=== PATIENT | female | born 1990 | race Asian ===

== ENCOUNTER 2020-04-30 05:58 | Inpatient (IN) ==
[2020-04-30] MEDS ORDERED: OXYTOCIN 30 UNITS/500 ML BAG IV PRN ×2 (06:45→17:12)
[2020-04-30] MEDS ORDERED: fentaNYL 2MCG/ML ROPIV 1.25MG/ML 100 ML BAG EPI ONE (06:56)
[2020-04-30] MEDS ORDERED: BUPIVACAINE 0.25% 30 ML VIAL ONE (06:56)
[2020-04-30] MEDS ORDERED: ePHEDrine sulfate 50 MG/ML AMP ONE (06:56)
[2020-04-30] MEDS ORDERED: fentaNYL citrate 100 MCG/2 ML VIAL ONE (06:56)
[2020-04-30] MEDS ORDERED: PENICILLIN G POTASSIUM 6 MU in DEXTROSE 5% 250 ML IV ONE (07:00)
[2020-04-30] MEDS: LACTATED RINGER'S 1,000 ML IV PRN ×3 (07:05→11:44)
[2020-04-30 07:17] LABS: Hematocrit (blood only) 34.1 % (37-47); Hemoglobin 10.6 g/dL (12.0-16.0); Mean Corpuscular Hemoglobin 25.3 pg (25-34); Mean Corpuscular Volume 81.4 fL (80-100); Platelet Count 260 K/uL (130-400); RDW Coefficient of Variation 14.7 % (11.5-14.5); RDW Standard Deviation 43.3 fL (36.4-46.3); Red Blood Count 4.19 M/uL (4.2-5.4); White Blood Count 11.94 K/uL (4.8-10.8)
[2020-04-30 07:22] LABS: Mean Corpuscular Hgb Conc 31.1 g/dL (32-36)
--- NOTE | 2020-04-30 07:49 | History & Physical Report ---
Date of Service April 30, 2020 Assessment & Plan (1) Supervision of normal intrauterine in primigravida: Admit to L&D. EFM/toco. Labs. IV access. Would like epidural. History of Present Illness Chief Complaint: labor Primary Care Provider: BRITTANI PCP 30yo @ 39 04/20 presents after rupture of membranes for clear fluid at 5am this morning. Contractions every few minutes. + movement, scant vaginal bleeding. complicated by finding of isolated choroid plexus cyst on ultrasound, later resolved. She had a panorama test with "no result" and declined repeat testing. GBS was positive in urine culture. Allergies Allergy/AdvReac Type Severity Reaction Status Date / Time No Known Allergies Allergy Verified 04/30/20 06:35 Home Medications Home Medications Medication Instructions Recorded Confirmed Type No Known Home Medications 04/25/20 04/30/20 History Patient History Medical History Depression Encounter for anatomic survey Family History Aunt Breast cancer Arthritis Social History Preferred Language: Mandarin Pashto Workers Compensation Analyst Required: No Beliefs That Will Affect Care: None marital status: marital status details: Seb Mccullough (27) [phone] Current Living Situation: Spouse Current Living Situation Comment: lives with FOB, no pets current occupational status: student current occupation: Communications student Other Information That Helps Us Care for You: No Feels Safe at Home: Yes Safety Concerns: Feels Safe At This Time Smoking Status: Never smoker Hx Alcohol Use: No Hx Substance Use: No Review of Systems All systems reviewed & are unremarkable except as noted in HPI & below Physical Exam Physical Exam: Cervix 3/90/-1 FHT Cat 1 [place] Q 2-4 min Constitutional: WD/WN, vitals as above Respiratory: normal respiratory effort, lungs clear to auscultation no respiratory distress Cardiovascular: Rate/Rhythm: regular rate and regular rhythm Gastrointestinal (Abdomen): Inspection/Auscultation: abdomen normal to inspection Percussion/Palpation: abdomen soft; abdomen nontender Gravid. No s/s chorio or abruption. Skin: no rashes, warm and dry Psychiatric: A+Ox3, euthymic affect Results & Data Vital Signs (Past 12 Hours) Vital Signs Temp Pulse Resp BP Pulse Ox 04/30/20 07:41 90 100 04/30/20 07:36 84 100 04/30/20 07:31 80 100 04/30/20 07:26 91 H 100 04/30/20 07:21 80 100 04/30/20 06:14 37.0 C 18 04/30/20 06:11 86 107/68 Coding Level of Care Code None Diagnoses Supervision of normal intrauterine in primigravida Z34.00
--- NOTE | 2020-04-30 08:10 | Anesthesiology Consultation ---
Date of Service April 30, 2020 Assessment & Plan Chart Review Chart Review: Acceptable Risk for Labor Epidural Consults Requested none History Height/Weight Height: 5 ft 2.99 in Weight: 75.296 kg Allergies Allergy/AdvReac Type Severity Reaction Status Date / Time No Known Allergies Allergy Verified 04/30/20 06:35 Medications Home Medications Medication Instructions Recorded Confirmed Last Taken No Known Home Medications 04/25/20 04/30/20 Unknown Active Medications Generic Name Dose Route Start Last Admin Trade Name Freq PRN Reason Stop Dose Admin Lactated Ringer's 1,000 mls @ 125 mls/hr 04/30/20 06:45 04/30/20 07:58 Lr IV 05/02/20 06:44 999 mls/hr .Q8H PRN Administration L&D Protocol Protocol Past Medical History Medical History Depression Encounter for anatomic survey Past Family History Family History Aunt Breast cancer Arthritis Social History Smoking Status: Never smoker Hx Alcohol Use: No Hx Substance Use: No substance use type: does not use Physical Exam Vital Signs Last Vital Signs Temp 37.0 C 04/30/20 06:14 Pulse 77 04/30/20 08:08 Resp 18 04/30/20 06:14 BP 101/57 L 04/30/20 08:08 Pulse Ox 99 04/30/20 08:06 Testing Laboratory Results 04/30/20 07:03
[2020-04-30] MEDS ORDERED: fentaNYL 2MCG/ML ROPIV 1.25MG/ML 100 ML BAG EPI PRN (08:11)
[2020-04-30] MEDS ORDERED: NALOXONE HCL 1 MG in SODIUM CHLORIDE 0.9% 1000ML 1,000 ML IV PRN (08:11)
[2020-04-30] MEDS ORDERED: DiphenhydrAMINE HCL 50 MG/ML VIAL IV PRN (08:11)
[2020-04-30] MEDS ORDERED: NALBUPHINE HCL INJ 10 MG/ML AMP IV PRN (08:11)
[2020-04-30] MEDS ORDERED: NALOXONE HCL 0.4 MG/1 ML VIAL/CARP IV PRN (08:11)
[2020-04-30] MEDS ORDERED: ePHEDrine sulfate 50 MG/ML AMP IV PRN (08:11)
[2020-04-30] MEDS: PENICILLIN G POTASSIUM 3 MU in DEXTROSE 5% 100 ML IV PRN ×2 (11:00→15:02)
[2020-04-30] MEDS ORDERED: IBUPROFEN 600 MG TAB PO PRN (17:12)
[2020-04-30] MEDS ORDERED: DIPHTHERIA/TETANUS/PERTUSSIS 0.5 ML SYR/VIAL IM ONE (17:12)
[2020-04-30] MEDS ORDERED: SUPERCREAM 0.870% 15 GM JAR EXT PRN (17:12)
[2020-04-30] MEDS ORDERED: ACETAMINOPHEN 325 MG TAB PO PRN (17:12)
[2020-04-30] MEDS ORDERED: HYDROCORTISONE ACETATE 25 MG SUPP PR PRN (17:12)
[2020-04-30] MEDS ORDERED: BENZOCAINE 20% AER SPR 82.5 GM CAN EXT PRN (17:12)
--- NOTE | 2020-04-30 18:56 | Anesthesia Procedure Note ---
Date of Service April 30, 2020 Anesthesia Post Epidural Note Vital Signs Vital Signs: Temp Pulse Resp BP Pulse Ox 37.3 C 80 16 100/56 L 99 04/30/20 17:03 04/30/20 18:47 04/30/20 17:03 04/30/20 18:47 04/30/20 16:56 Notes Mental Status: alert / awake / arousable Nausea / Vomiting: adequately controlled Pain: adequately controlled Airway Patency, RR, SpO2: stable & adequate BP & HR: stable & adequate Hydration State: stable & adequate Neuraxial Anesthesia: was administered and sensory block is resolving Anesthetic Complications: no major complications apparent and Pt Satisfied with anesthetic care Epidural: Removed without complications and With tip intact
--- NOTE | 2020-04-30 19:31 | Delivery Summary ---
DATE OF OPERATION: 04/30/2020 The patient is a 30-year-old 2, para 0-0-1-0 female who presented at 39 and 6/7 weeks with ruptured membranes for clear fluid at approximately 0500 hours. She began to contract spontaneously. She received epidural analgesia, which was effective. She progressed to full dilation and pushed effectively over intact perineum for delivery of a viable male . The was placed on the mother's abdomen for further drying and attention. There was vigorous crying and the infant was moving all 4 limbs. The placenta was expressed intact with a 3-vessel cord. A first-degree vaginal laceration was repaired with 3-0 chromic in the usual fashion. Estimated blood loss was 250 mL. Mother and infant were doing well after delivery. bleeding was controlled with dilute Pitocin. I attest to the content of the Intraoperative Record and any orders documented therein. Any exception s are noted below.
--- NOTE | 2020-05-01 05:43 | Obstetrical Progress Note ---
Date of Service <Gus Spencer MD - Last Filed: 05/01/20 07:18> May 01, 2020 Assessment & Plan <Gus Spencer MD - Last Filed: 05/01/20 07:18> (1) : PPD#1: - doing well, ambulating well, tolerating oral intake - continue routine care - after discharge will have 6 week follow-up with Dr. Jennifer Luke <Gus Spencer MD - Last Filed: 05/01/20 07:18> Enoc Murphy is a 30 y/o female ; PPD #1 following spontaneous vaginal delivery at 39 weeks; doing well this morning; minimal abdominal cramping/pain; voiding well; tolerating meals overnight; and able to ambulate some; some persistent spotting with intermittent improvement this morning. Review of Systems Constitutional: denies fever; chills; sweats; headache Respiratory: denies shortness of breath, difficulty breathing Cardiac: denies chest pain; palpitations; chest pressure Breast: denies breast pain : denies dysuria Physical Exam <Gus Spencer MD - Last Filed: 05/01/20 07:18> General: alert; oriented; no acute distress Cardiac: RRR; no m/g/r Respiratory: CTAB a/p; no wheezes/rales/rhonchi; no increased work of breathing; symmetrical chest rise; no respiratory distress Abdomen: soft; NT/ND; bowel sounds positive Uterus: uterine fundus firm; palpable 1cm below umbilicus Lower extrem: no lower extremity edema or swelling; no deep calf pain; Leland's sign negative b/l Results & Data <Gus Spencer MD - Last Filed: 05/01/20 07:18> Vital Signs (Past 12 Hours) Vital Signs Temp Pulse Pulse Resp BP BP Pulse Ox 05/01/20 04:05 36.8 C 71 16 96/63 L 05/01/20 00:15 37.6 C H 72 16 99/64 L 04/30/20 19:35 36.8 C 89 16 109/69 98 04/30/20 19:02 90 98/53 L 04/30/20 18:47 80 100/56 L 04/30/20 18:32 68 100/57 L 04/30/20 18:17 74 107/57 L 04/30/20 18:03 82 102/59 L 04/30/20 17:47 88 105/59 L Laboratory Results 05/01/20 04/30/20 Range/Units 05:28 07:03 WBC 14.12 H 11.94 H (4.8-10.8) K/uL RBC 3.45 L 4.19 L (4.2-5.4) M/uL Hgb 9.1 L 10.6 L (12.0-16.0) g/dL Hct 27.9 L 34.1 L (37-47) % MCV 80.9 81.4 (80-100) fL MCH 26.4 25.3 (25-34) pg MCHC 32.6 31.1 L (32-36) g/dL RDW Std Deviation 43.3 43.3 (36.4-46.3) fL RDW Coeff of Zahida 14.8 H 14.7 H (11.5-14.5) % Plt Count 206 260 (130-400) K/uL MPV 10.3 11.0 H (7.4-10.4) fL Medications Administered Current Inpatient Medications Acetaminophen (Tylenol) 650 mg PO Q6H PRN PRN Reason: Pain/MARTINEZ/Fever Stop: 05/30/20 17:11 Benzocaine (Dermoplast Pain Relieving [place]) 1 appln EXT PRN PRN PRN Reason: Perineal Discomfort Stop: 05/30/20 17:11 Last Admin: 05/01/20 01:07 Dose: 82.5 appln Documented by: Bisacodyl (Dulcolax) 10 mg [place] DAILY PRN PRN Reason: No BM on 2nd post- day Stop: 06/01/20 08:59 Cocaine HCl (Supercream 0.870%) 1 gm EXT BID PRN PRN Reason: Hemorrhoidal Inflammation Stop: 05/14/20 17:11 Diphenhydramine HCl (Benadryl) 25 mg IV Q6H PRN PRN Reason: Itching Stop: 05/01/20 08:10 Docusate Sodium (Colace) 100 mg PO DAILY@08,21 [place] Stop: 05/30/20 20:59 Ephedrine Sulfate (Ephedrine Sulfate) 10 mg IV Q5M PRN PRN Reason: Hypotension Stop: 05/01/20 08:10 Hydrocortisone (Anusol Hc) 25 mg [place] BID PRN PRN Reason: Hemorrhoidal Inflammation Stop: 05/30/20 17:11 Lactated Ringer's (Lr) 1,000 mls @ 125 mls/hr IV .Q8H PRN; Protocol PRN Reason: L&D Protocol Stop: 05/02/20 06:44 Last Infusion: 04/30/20 16:47 Dose: 0 mls/hr Documented by: Oxytocin (Pitocin) 30 units in 500 mls @ 333.333 mls/hr IV .Q1H30M PRN; Protocol PRN Reason: Bleeding Control Stop: 05/30/20 06:44 Last Titration: 04/30/20 18:19 Dose: Infused Documented by: Penicillin G Potassium 3 mu/ (Dextrose) 106 mls @ 100 mls/hr IV Q4H PRN PRN Reason: Give until delivery Stop: 05/10/20 06:44 Last Infusion: 04/30/20 16:06 Dose: Infused Documented by: Naloxone HCl 1 mg/ Sodium (Chloride) 1,002.5 mls @ 50 mls/hr IV .Q20H3M PRN PRN Reason: itching or nausea Stop: 05/01/20 08:10 Oxytocin (Pitocin) 30 units in 500 mls @ 333.333 mls/hr IV .Q1H30M PRN; Protocol PRN Reason: Bleeding Control Stop: 05/30/20 17:11 Ibuprofen (Motrin) 600 mg PO Q4H PRN PRN Reason: Pain/MARTINEZ/Cramping/Fever Stop: 05/30/20 17:11 Last Admin: 05/01/20 04:14 Dose: 600 mg Documented by: Nalbuphine HCl (Nubain) 5 mg IV Q10M PRN PRN Reason: itching or nausea Stop: 05/01/20 08:10 Naloxone HCl (Narcan) 0.1 mg IV UD PRN PRN Reason: Respiratory Depression Stop: 05/01/20 08:10 Prenat Multivit/[place]/Iron/Folic Ac ( Vitamin) 1 tab PO DAILY@08 [place] Stop: 05/31/20 07:59 Ropivacaine (Epidural (L&D)) 100 ml EPI PRN PRN; Protocol PRN Reason: Pain R/T Labor Stop: 05/01/20 08:10 Last Admin: 06/17/20 14:19 Dose: 100 ml Documented by: <Denise Dean MD, FACOG - Last Filed: 05/01/20 07:40> Co-Signing Physician Notes Resident Physician Supervision Note: I interviewed and examined the patient. Discussed with Dr. Spencer and agree with findings and plan as documented in the note. Any exceptions or clarifications are listed here: [None] Documented By: Denise Dean MD, FACOG Resident Activity Tracking <Gus Spencer MD - Last Filed: 05/01/20 07:18> Resident Involvement: Resident Care Provided Care Provided: OB Delivery
[2020-05-01 05:52] LABS: Hematocrit (blood only) 27.9 % (37-47); Hemoglobin 9.1 g/dL (12.0-16.0); Mean Corpuscular Hemoglobin 26.4 pg (25-34); Mean Corpuscular Hgb Conc 32.6 g/dL (32-36); Mean Corpuscular Volume 80.9 fL (80-100); Mean Platelet Volume 10.3 fL (7.4-10.4); Platelet Count 206 K/uL (130-400); RDW Coefficient of Variation 14.8 % (11.5-14.5); RDW Standard Deviation 43.3 fL (36.4-46.3); Red Blood Count 3.45 M/uL (4.2-5.4); White Blood Count 14.12 K/uL (4.8-10.8)
[2020-05-01] MEDS: DOCUSATE SODIUM 100 MG CAP PO SCH ×2 (09:00→21:08)
[2020-05-01] MEDS: PRENATAL VITAMIN 1 TAB PO SCH (09:00)
--- NOTE | 2020-05-02 06:20 | Obstetrical Progress Note ---
Date of Service <Gus Spencer MD - Last Filed: 05/02/20 06:56> May 02, 2020 Assessment & Plan <Gus Spencer MD - Last Filed: 05/02/20 06:56> (1) : PPD#2: - doing well, ambulating well, tolerating oral intake - continue routine care - after discharge will have 6 week follow-up with Dr. Jennifer Luke <Gus Spencer MD - Last Filed: 05/02/20 06:56> Enoc Murphy is a 30 y/o female ; PPD# 2 following spontaneous vaginal delivery at 39 weeks; doing well this morning; minimal abdominal cramping/pain; voiding well; tolerating meals overnight; and able to ambulate some; some persistent spotting with intermittent improvement this morning. Review of Systems Constitutional: denies fever; chills; sweats; headache Respiratory: denies shortness of breath, difficulty breathing Cardiac: denies chest pain; palpitations; chest pressure Breast: denies breast pain : denies dysuria Physical Exam <Gus Spencer MD - Last Filed: 05/02/20 06:56> General: alert; oriented; no acute distress Cardiac: RRR; no m/g/r Respiratory: CTAB a/p; no wheezes/rales/rhonchi; no increased work of breathing; symmetrical chest rise; no respiratory distress Abdomen: soft; NT/ND; bowel sounds positive Uterus: uterine fundus firm; palpable 3cm below umbilicus Lower extrem: no lower extremity edema or swelling; no deep calf pain; Leland's sign negative b/l Results & Data <Gus Spencer MD - Last Filed: 05/02/20 06:56> Vital Signs (Past 12 Hours) Vital Signs Temp Pulse Resp BP 05/02/20 00:10 37 C 74 16 96/61 L 05/01/20 19:50 36.9 C 76 18 97/67 L Laboratory Results 05/02/20 Range/Units 06:09 Hgb 10.9 L (12.0-16.0) g/dL Hct 33.9 L (37-47) % Medications Administered Current Inpatient Medications Acetaminophen (Tylenol) 650 mg PO Q6H PRN PRN Reason: Pain/MARTINEZ/Fever Stop: 05/30/20 17:11 Benzocaine (Dermoplast Pain Relieving [place]) 1 appln EXT PRN PRN PRN Reason: Perineal Discomfort Stop: 05/30/20 17:11 Last Admin: 05/01/20 01:07 Dose: 82.5 appln Documented by: Bisacodyl (Dulcolax) 10 mg [place] DAILY PRN PRN Reason: No BM on 2nd post- day Stop: 06/01/20 08:59 Cocaine HCl (Supercream 0.870%) 1 gm EXT BID PRN PRN Reason: Hemorrhoidal Inflammation Stop: 05/14/20 17:11 Docusate Sodium (Colace) 100 mg PO DAILY@08, [facility] Stop: 05/30/20 20:59 Last Admin: 05/01/20 21:08 Dose: 100 mg Documented by: Hydrocortisone (Anusol Hc) 25 mg [place] BID PRN PRN Reason: Hemorrhoidal Inflammation Stop: 05/30/20 17:11 Oxytocin (Pitocin) 30 units in 500 mls @ 333.333 mls/hr IV .Q1H30M PRN; Protocol PRN Reason: Bleeding Control Stop: 05/30/20 06:44 Last Titration: 04/30/20 18:19 Dose: Infused Documented by: Penicillin G Potassium 3 mu/ (Dextrose) 106 mls @ 100 mls/hr IV Q4H PRN PRN Reason: Give until delivery Stop: 05/10/20 06:44 Last Infusion: 04/30/20 16:06 Dose: Infused Documented by: Oxytocin (Pitocin) 30 units in 500 mls @ 333.333 mls/hr IV .Q1H30M PRN; Protocol PRN Reason: Bleeding Control Stop: 05/30/20 17:11 Ibuprofen (Motrin) 600 mg PO Q4H PRN PRN Reason: Pain/MARTINEZ/Cramping/Fever Stop: 05/30/20 17:11 Last Admin: 05/01/20 04:14 Dose: 600 mg Documented by: Prenat Multivit/Para Machine Operator/Iron/Folic Ac ( Vitamin) 1 tab PO DAILY@08 [facility] Stop: 05/31/20 07:59 Last Admin: 05/01/20 09:00 Dose: 1 tab Documented by: <Augustine Rivers MD, FACOG - Last Filed: 05/02/20 07:03> Co-Signing Physician Notes Resident Physician Supervision Note: I interviewed and examined the patient. Discussed with Dr. Spencer and agree with findings and plan as documented in the note. Any exceptions or clarifications are listed here: [None] Documented By: Augustine Rivers MD, FACOG Resident Activity Tracking <Gus Spencer MD - Last Filed: 05/02/20 06:56> Resident Involvement: Resident Care Provided Care Provided: OB Delivery
[2020-05-02 06:36] LABS: Hematocrit (blood only) 33.9 % (37-47); Hemoglobin 10.9 g/dL (12.0-16.0)
[2020-05-02] MEDS: PRENATAL VITAMIN 1 TAB PO SCH (07:46)
[2020-05-02] MEDS: DOCUSATE SODIUM 100 MG CAP PO SCH (07:47)
[2020-05-02] MEDS ORDERED: bisacodyL 10 MG SUPP PR PRN (09:00)
== END 2020-05-02 15:10 | disposition home or self-care (01) | DRG 807 ==
LOC: OPB 05:58 → 4S1 05:59 → 4S2 19:50